=== PATIENT | male | born 1975 | race Caucasian/White ===

== ENCOUNTER 2021-12-20 16:11 | Outpatient (REF) | payer SELFPAY ==
[2021-12-20 16:12] VITALS: BP 145/106; BP 146/106; PULSE 77; RESP 16; TEMP 36.8; O2SAT 98; BMI 21.3
--- NOTE | 2021-12-20 17:42 | RAD_ITS ---
STUDY: X-RAY - LEFT SHOULDER REASON FOR EXAM: Male, 46 years old. injury TECHNIQUE: 2 view(s) of the shoulder. COMPARISON: None. FINDINGS: Widening of the acromioclavicular joint, with mild elevation of the distal clavicle relative to the acromion. Normal glenohumeral articulation. Normal acromion. Normal humeral head and visualized proximal humerus. The soft tissue structures are unremarkable. Normal visualized pulmonary apex. RAD/Shoulder min 2 Views IMPRESSION: Findings consistent with acromioclavicular subluxation. Electronically Signed: Nancie Phillips MD at 18:01 EDT Reading Location ID and State: [id number] / Tel , Service support ,
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
== END 2021-12-20 18:18 | disposition home or self-care (01) ==
LOC: ED 16:11
PROVIDERS: Visit Provider Emergency Medicine
DX: M19.012 Primary osteoarthritis, left shoulder (principal); Z87.891 Personal history of nicotine dependence
CPT/HCPCS: 73030